=== PATIENT | female | born 1960 | race Caucasian/White ===

== ENCOUNTER 2025-08-10 18:06 | Emergency (ER) | payer MEDICARE, MEDICAID, SELFPAY ==
--- OUTSIDE RECORDS SUMMARY | 2010-12-05 04:35 | XMS_ITS | Continuity of Care Document ---
Author Organization [facility] Address [address] [place] [address] Phone Care Team Providers Care Occupational Health Nurse Manager Name Role Phone Oleksandr SUPERVISOR POLE YARD, Joyce Unavailable Unavailabl e Allergies, Adverse Reactions, Alerts Substance Reaction Status Criticality ferrous sulfate fainting Active No Informati on Medications Medication Instructions Dosage Effective Dates (start - stop) Status Comments estradiol 1 mg Tab take 1 tablet (1MG) by ORAL route every day 1 MG - [facility] SUPERVISOR POLE YARD albuterol sulfate HFA 90 mcg/Actuation Aerosol Inhaler inhale 2 puff by INHALATION route every 4 - 6 hours as needed - Active hydrochlorothiazide 25 mg Tab take 1 tablet (25MG) by ORAL route every day 25 MG - Active Procedures Procedure Date EST OFFICE VISIT LEVEL 4 EST OFFICE VISIT LEVEL 4 MEASURE BLOOD OXYGEN LEVEL EST OFFICE VISIT LEVEL 3 EST OFFICE VISIT LEVEL 4 OFFICE/OUTPATIENT VISIT, EST PREV VISIT, NEW, AGE 40-64 LIQUID BASED PAP REFLEX HPV FROM ASCUS, 20 & OVER Condoms EST OFFICE VISIT LEVEL 4 EST OFFICE VISIT LEVEL 4 EST OFFICE VISIT LEVEL 4 TB INTRADERMAL TEST Advance Directives Directive Yes / No Effective Date File Name Resuscitation Not Answered N/A N/A Life Support Not Answered N/A N/A Intubation Not Answered N/A N/A Antibiotics Not Answered N/A N/A IV Fluid Support Not Answered N/A N/A Tube Feed Not Answered N/A N/A Other Directive N/A N/A WARNING:The information contained in this section is historical and is provided for information only and does not constitute a legal document or any assurance that the information is still accurate. Please verify the information with the law of the legal document before using it for clinical purposes. Encounters Encounter Description Practice Location Reason(s) For Visit Diagnoses Date Provider Providers Copied on Encounter [facility], [address] [place] [address], [id number] , tel: [phone] [facility] work injury contusion left great toe/neg fx, er report (chief complaint) No Information Nov-2 1201 1 Oleksandr Cook. [address] [place] [address], [address]. tel:[phone] EST OFFICE VISIT LEVEL 4 [facility], [address] [place] [address], [id number] , [place] tel: [phone] [facility] cough (chief complaint)b ilateral leg pain/edema (chief complaint) EdemaAcute sinusitis, unspecifiedElevated blood pressure reading without diagnosis of hypertensionCough Fe-0 8-201 1 Oleksandr Cook. [address] [place] [address], [address]. tel:[phone] EST OFFICE VISIT LEVEL 4 [facility], [address] [place] [address], [id number] , [place] tel: [phone] [facility] follow up bruised ribs (chief complaint) Unspecified chest painObstructive chronic bronchitis, with (acute) exacerbationUnspeci fied chest painObstructive chronic bronchitis, with (acute) exacerbation Dec-0 3-201 0 Oleksandr Cook. [address] [place] [address], [address]. tel:[phone] EST OFFICE VISIT LEVEL 3 [facility], [address] [place] [address], [id number] , [place] tel:[phone] [facility] rib pain (chief complaint) Cough Nov-3 0-201 0 Oleksandr Cook. [address] [place] [address], [address]. tel:[phone] EST OFFICE VISIT LEVEL 4 [facility], [address], [place], [id number] , [place] tel: [phone] [facility] shortness of breath (chief complaint)c ough (chief complaint)w heezing (chief complaint) Acute bronchitisObstructi ve chronic bronchitis, with (acute) exacerbation Oct-2 6-201 0 Oleksandr Cook. [address] [place], [address]. tel:[phone] OFFICE/OUTPA TIENT VISIT, [facility], [address], [place], [id number] , [place] tel: [phone] [facility] chest pain (chief complaint) Unspecified chest painObstructive chronic bronchitis, with (acute) exacerbationUnspeci fied chest painOther malaise and fatigueOther malaise and fatigueObesity, unspecifiedNondepen dent tobacco use disorderCoughObesit y, unspecifiedCough Sep-0 7-201 0 Oleksandr Cook. [address] [place], [address]. tel:[phone] PREV VISIT, NEW, AGE 40-64 [facility], [address] [place] [address], [id number] , [place] tel: [phone] [facility] No Information Aug-0 9201 0 Yanelis Scott. [address] [place] [address], [id number]. tel:[phone] EST OFFICE VISIT LEVEL 4 [facility], [address] [place] [address], [id number] , [place] tel: [phone] [facility] follow up on lab / diagnostic test (chief complaint) Pain in joint involving lower leg Hans-0 8-201 0 Finn Bledsoe. [address] [place], [address], [place]. tel:[phone] EST OFFICE VISIT LEVEL 4 [facility], [address] [place] [address], [id number] , [place] tel:[phone] [facility] cellulitis (chief complaint) Pain in joint involving lower leg 0 Stierwalt DIRECTOR OF LABOR AND DELIVERY-C Ladi. [address] [place], [address], [place]. tel:[phone] EST OFFICE VISIT LEVEL 4 [facility], [address], [place], [id number] , tel:[phone] [facility] edema (chief complaint)p ain (chief complaint) Cellulitis and abscess of leg, except footOther malaise and fatigue 0 Stierwalt DIRECTOR OF LABOR AND DELIVERY-C Ladi. [address] [place], [address], [place]. tel:[phone] [facility], [address], [place], [id number] , tel:[phone] [facility] No Information 200 8 Visci DO Zeferino. [address] [place] [address], [id number], [place]. tel:[phone] Family History Family Member Type Diagnosis Age At Onset Mother Problem (finding) hypertension Father Problem (finding) prostate cancer Mother Problem (finding) Alive and well 70 Father Problem (finding) Alive and well Maternal grandfather Problem (finding) alcoholism Father Problem (finding) diabetes melli tus in first degree relative Father Problem (finding) Obesity Payers Payer name Insurance type Covered libertarian ID Saida rizvipaola(s) [facility] CI [id number] Social History Type Description Quantity Date Captured Comments Alcohol Use Details Unknown Caffeine Use Details Unknown Tobacco Use Status Smoking Status No Information Sex Female Yes - Patient is cur rently Chief Complaint And Reason For Visit From encounter dated '12/05/2010 09:35'. work injury contusion left great toe/neg fx, er report (chief complaint) Reason For Referral Reason For Referral No Information Plan Of Treatment Date Type Action Status Goal Lipid Panel. Due on 011 due Goal Urinalysis. Due on 11 due Goal Urine Microalbumin. Due on S due History Of Present Illness Encounter Date Complaint History Of Prese nt Illness No Information Functional Status Date Functional Assessmen t No Information Instructions Date Instruction Additional Infor chicho Review medications Review medication side effects Walking program recommended Call if symptoms persist Go to ER if symptoms persist or worsen Prescribe medications Review medications Review medication side effects Go to ER if symptoms persist or worsen Call if symptoms persist Walking program recommended Walking program recommended Call if symptoms persist Go to ER if symptoms persist or worsen Order labs/studies Review medications Assessments Type Assessment Date No Information Patient Care Teams Name Effective Dates (start - stop) Status Members No Information
[2025-08-10 18:12] VITALS: BP 143/91; PULSE 77; TEMP 36.7; O2SAT 98; BMI 28.7
--- NOTE | 2025-08-10 18:24 | ED_ITS ---
HPI - Female Genitourinary General Chief complaint: Urogenital-Female Stated complaint: UTI Time Seen by Provider: 08/10/25 18:23 Source: patient Mode of arrival: walk-in Limitations: no limitations History of Present Illness HPI Narrative: 64 year old female presents to the ED for urinary frequency/urgency, low abd discomfort. Onset was this morning. Denies fever, chills, flank pain, dysuria, hematuria. She takes Lasix 80 mg daily. Related Data Previous Rx's ?Medication ?Instructions ?Recorded cephalexin 500 mg capsule 500 mg PO BID 5 days #10 cap s 08/10/25 phenazopyridine 100 mg tablet 100 mg PO Q8H PRN pain # 5 tabs 08/10/25 (Pyridium) Allergies Allergy/AdvReac Type Severity Reaction Status Date / Time tramadol Allergy Intermediate mouth Verified 08/10/25 18:15 tingling amoxicillin (From Augmentin) AdvReac Intermediate blood in Verified 08/10/25 18:15 stool clavulanic acid (From AdvReac Intermediate blood in Verified 08/10/25 18:15 Augmentin) stool iron AdvReac Intermediate syncope Verified 08/10/25 18:15 Review of Systems ROS Constitutional Denies: fever or chills Cardiovascular Denies: chest pain Respiratory Denies: shortness of breath Gastrointestinal Reports: abdominal pain; Denies: nausea, vomiting or diarrhea Genitourinary Reports: urinary frequency and urinary urgency; Denies: painful urination or blood in urine Musculoskeletal Denies: back pain or neck pain Integumentary/Breast Denies: rash Neurological Denies: headache, weakness in extremities or dizziness PFSH PFSH Social History Little interest or pleasure in doing things: not at all Feeling down, depressed, or hopeless: not at all Exam Constitutional Vital Signs, click to edit/add: Last Vital Signs Temp 98.1 F 08/10/25 18:12 Pulse 77 08/10/25 18:12 Resp 18 08/10/25 18:12 BP 143/91 H 08/10/25 18:12 Pulse Ox 99 08/10/25 19:23 O2 Del Method Room Air 08/10/25 19:23 Common normals: no apparent distress and oriented x3 General appearance: cooperative Eye Common normals: conjunctivae normal and no scleral icterus Neck & C-Spine Common normals: supple Chest Chest: symmetrical chest wall rise Respiratory Common normals: normal respiratory effort Effort & inspection: able to speak in complete sentences and symmetric chest movement Cardio Common normals: regular rate GI Common normals: Normal to inspection, nondistended, normoactive bowel sounds present and soft to palpation Palpation: tender Details: suprapubic Bladder/kidney exam: no CVA tenderness Neuro Common normals: oriented x3, moves all extremities and no focal motor deficits Sensorium/orientation: awake and alert Speech: speech normal Gait (neuro): normal gait Course Vital Signs Vital signs: Vital Signs Temperature 98.1 F 08/10/25 18:12 Pulse Rate 77 08/10/25 18:12 Respiratory Rate 18 08/10/25 18:12 Blood Pressure 143/91 H 08/10/25 18:12 Pulse Oximetry 98 08/10/25 18:12 Oxygen Delivery Method Room Air 08/10/25 18:12 Temperature 98.1 F 08/10/25 18:12 Pulse Rate 77 08/10/25 18:12 Respiratory Rate 18 08/10/25 18:12 Blood Pressure 143/91 H 08/10/25 18:12 Pulse Oximetry 99 08/10/25 19:23 Oxygen Delivery Method Room Air 08/10/25 19:23 MDM - Female Genitourinary MDM Narrative Medical decision making narrative: Urinalysis was positive for 10-[address] scan showed concern for cystitis. Urine culture was ordered and pending. Findings were discussed with the patient and her family member. Prescriptions were provided for Keflex and Pyridium. She was given Rocephin and Pyridium here in the ED. Follow up with pcp for a recheck, further evaluation and treatment. Return to the ED for worsening symptoms. Differential Diagnosis Differential diagnosis: Likely urinary tract infection, cystitis and other (kidney stone) Medical Records Attestation: I reviewed the patient's medical records. Lab Data Attestation: I reviewed the patient's lab results. Labs: Lab Results 08/10/25 08/10/25 Range/Units 18:31 18:55 WBC 5.6 (4.0-11.0) 10^3/uL RBC 4.53 (4.20-5.40) 10^6/uL Hgb 14.2 (12.0-16.0) g/dL Hct 40.9 (36.0-48.0) % MCV 90.3 (81.0-99.0) fL MCH 31.3 (26.7-34.0) pg MCHC 34.7 (29.9-35.2) g/dL RDW 12.8 (11.0-15.0) % Plt Count 102 L (150-450) 10^3/uL MPV 12.2 (9.5-13.5) fL Neut % (Auto) 76.8 H (43.0-75.0) % Lymph % (Auto) 9.9 L (20.5-60.0) % [place] % (Auto) 11.9 (1.7-12.0) % Eos % (Auto) 0.7 L (0.9-7.0) % Baso % (Auto) 0.2 (0.2-2.0) % Neut # (Auto) 4.3 (1.4-6.5) 10^3/uL Lymph # (Auto) 0.6 L (1.2-3.8) 10^3/uL [place] # (Auto) 0.7 (0.3-0.8) 10^3/uL Eos # (Auto) 0.0 (0.0-0.7) 10^3/uL Baso # (Auto) 0.0 (0.0-0.1) 10^3/uL Abs Immat Gran (auto) 0.03 (0.00-0.03) 10^3/uL Imm/Tot Granulo (auto) 0.5 (0.0-0.5) % Sodium 134 L (136-145) mmol/L Potassium 3.9 (3.5-5.1) mmol/L Chloride 97 L (98-107) mmol/L Carbon Dioxide 33.1 H (21.0-32.0) mmol/L Anion Gap 7.8 BUN 22.0 H (7.0-18.0) mg/dL Creatinine 1.31 H (0.55-1.02) mg/dL Est GFR ( Amer) 50 L (>=60 mL/min/1.73m^2) Est GFR (Non-Af Amer) 41 L (>=60 mL/min/1.73m^2) BUN/Creatinine Ratio 16.8 Glucose 167 H (74-106) mg/dL Calcium 9.7 (8.5-10.1) mg/dL Urine Color Lt. yellow (YELLOW) Urine Clarity Clear (CLEAR) Urine pH 6.0 (5.0-9.0) Ur Specific [place] 1.010 (1.005-1.025) Urine Protein Negative (NEG/TRACE) mg/dL Urine Glucose (UA) Negative (NEGATIVE) mg/dL Urine Ketones Negative (NEGATIVE) mg/dL Urine Occult Blood Large A (NEGATIVE) Urine Nitrite Negative (NEGATIVE) Urine Bilirubin Negative (NEGATIVE) Urine Urobilinogen 1.0 (0.2-1.0) EU/dL Ur Leukocyte Esterase Negative (NEGATIVE) Urine RBC 10-20 A (0-2) #/HPF Urine WBC None seen (NONE SEEN) #/HPF Ur Squamous Epith Cells Rare (NONE/RARE) #/LPF Urine Crystals None seen (None Seen) #/HPF Urine Bacteria Trace A (NONE SEEN) #/HPF Urine Casts None seen (NONE SEEN) #/LPF Urine Mucus None seen (NONE SEEN) Ur Culture Indicated? No Imaging Data CT scan - abdomen: Attestation: I have reviewed the pertinent imaging results. Radiologist's impression: ITS Impressions Abdomen/Pelvis CT 08/10/25 18:48 IMPRESSION: Perivascular haziness worrisome for cystitis. Correlate with urinalysis findings. Negative for nephrolithiasis or hydronephrosis. Impression dictated by: Dm Curtis M.D. 08/10/2025 8:08 PM Dictation Location: [place] [address] Electronically authenticated by: [id number] Y Date: 08/10/2025 20:08 Discharge Plan Discharge Chief Complaint: Urogenital-Female Clinical Impression: Urinary tract infection Patient Disposition: Home, Self-Care Time of Disposition Decision: 20:33 Condition: Good Mode of Transportation: Private Vehicle Prescriptions / Home Meds: New cephalexin 500 mg capsule 500 mg PO BID 5 Days Qty: 10 0RF phenazopyridine [Pyridium] 100 mg tablet 100 mg PO Q8H PRN (Reason: pain) Qty: 5 0RF Print Language: St Helenian Instructions: Urinary Tract Infection in Women (ED) Additional Instructions: Return to the ED for worsening symptoms. Referrals: HECTOR GUTIERREZ [Primary Care Provider, Family Practice] - 1 week
[2025-08-10 18:37] LABS: Glucose Urine UA NEGATIVE (NEGATIVE)
[2025-08-10 18:45] LABS: Cast Seen? NONE SEEN #/LPF (NONE SEEN); Crystals Seen? None Seen #/HPF (None Seen); Urine Culture Indicated NO
--- NOTE | 2025-08-10 18:48 | CT_ITS ---
The [address] [address] Patient Name: RUTHANN CALIXTO MRN: [facility]:[id number] date: 1960 Sex: F Assigned Patient Location: ER Current Patient Location: ED.MAIN Accession/Order Number: [id number] Exam Date: 08/10/2025 18:58 Report Date: 08/10/2025 20:08 At the request of: SRUTHI JARRETT Procedure: CT abdomen pelvis wo con CT ABDOMEN AND PELVIS WITHOUT INTRAVENOUS CONTRAST: CLINICAL HISTORY: hematuria COMPARISON: None TECHNIQUE: Spiral images were obtained through the abdomen and pelvis without intravenous contrast. This CT exam was performed using one or more following dose reduction techniques: Automated exposure control, adjustment of the mA and/or kV according to patient size, or use of iterative reconstruction technique. FINDINGS: Lung Bases: [Lingular scarring or atelectasis.] Organs:Lobular contour of the liver liver worrisome for hepatic cellular disease. Splenomegaly. Cholecystectomy.[Otherwise, adrenals, pancreas unremarkable. Right renal cyst 3.8 cm in size. Negative hydronephrosis. Negative for nephrolithiasis. GI: Retained stool throughout the colon. No bowel obstruction. Appendix unremarkable.[ Pelvis:[Bladder is mildly distended with surrounding fat stranding worrisome for cystitis. Hysterectomy. No adnexal mass.] Peritoneum/Retroperitoneum:Moderate plaque involving the nonaneurysmal aorta.[No free air or free fluid. Abd wall/Bones:Multilevel facet arthropathy. No suspicious osseous lesion.[ CT/CT abdomen pelvis wo con IMPRESSION: Perivascular haziness worrisome for cystitis. Correlate with urinalysis findings. Negative for nephrolithiasis or hydronephrosis. Impression dictated by: Dm Curtis M.D. 08/10/2025 8:08 PM Dictation Location: [place] [address] Electronically authenticated by: [id number] Y Date: 08/10/2025 20:08
--- OUTSIDE RECORDS SUMMARY | 2025-08-10 18:57 | XMS_ITS | Encounter Summary ---
Author Organization [facility] Address [address] [place] [address] Care Team Providers Care Arboreal Scientist Name Role Phone Huber Greene MD Primary Care Provider Arie Marquez DO Unavailable [phone] Melissa Agustin MD Unavailable Huber Greene MD Unavailable [phone] Reason for Visit * ReasonOnset DateCommentsMed Irsqzv0208/03/2025 Encounter Details DateTypeDepartmentCare Team (Latest Contact Info)Pmoeitplcju50/17/2025Refill [facility] [address] [place] [address] Huber Greene MD [address] [place] [address] Chronic RUQ pain Social History Tobacco UseTypesPacks/DayYears UsedDateSmoking Tobacco: Every DayCigarettes0.5 40.9Started: 09/17/1984Passive Smoke Exposure: CurrentSmokeless Tobacco: Never Alcohol UseStandard Drinks/WeekCommentsNever0 (1 standard drink = 0.6 oz pure alcohol)caffeine 2-3 cups/vcbE1035 Health LiteracyAnswerDate RecordedHow often do you need to have someone help you when you read instructions, pamphlets, or other written material from your doctor or pharmacy?Never06/10/2025Humiliation, Afraid, Rape, and Kick questionnaireAnswerDate RecordedWithin the last year, have you been afraid of your partner or ex-partner?No06/10/2025Within the last year, have you been humiliated or emotionally abused in other ways by your partner or ex-partner?No06/10/2025Within the last year, have you been kicked, hit, slapped, or otherwise physically hurt by your partner or ex-partner?No 06/10/2025Within the last year, have you been raped or forced to have any kind of sexual activity by your partner or ex-partner?No06/10/2025Social Connection and Isolation PanelAnswerDate RecordedIn a typical week, how many times do you talk on the phone with family, friends, or neighbors?More than three times a week06/10/2025How often do you get together with friends or relatives?Twice a week06/10/2025How often do you attend zoroastrian or gnosticist services?More than 4 times per year06/10/2025Do you belong to any clubs or organizations such as zoroastrian groups, unions, fraternal or athletic groups, or school groups?Yes 06/10/2025How often do you attend meetings of the clubs or organizations you belong to?1 to 4 times per year06/10/2025re you , , , , never , or living with a partner?Living with gqkfpfp0006/10/2025 AUDIT-CAnswerDate RecordedQ1: How often do you have a drink containing alcohol? Never06/10/2025Q2: How many drinks containing alcohol do you have on a typical day when you are drinking?Patient does not drink06/10/2025Q3: How often do you have six or more drinks on one occasion?Never06/10/2025Overall Financial Resource Strain (CARDIA)AnswerDate RecordedHow hard is it for you to pay for the very basics like food, housing, medical care, and heating?Somewhat hard 06/10/2025PHQ-2AnswerDate RecordedPatient Health Questionnaire-2 Score0 11/24/2024[place] [facility] - Occupational Stress QuestionnaireAnswerDate RecordedDo you feel stress - tense, restless, nervous, or anxious, or unable to sleep at night because yourmind is troubled all the time - these days?Not at all06/10/2025Exercise Vital SignAnswerDate RecordedOn average, how many days per week do you engage in moderate to strenuous exercise (like a brisk walk)?2 days06/10/2025On average, how many minutes do you engage in exercise at this level?20 min06/10/2025Hunger Vital SignAnswerDate Recorded Within the past 12 months, you worried that your food would run out before you got the money to buymore.Never true06/10/2025Within the past 12 months, the food you bought just didn't last and you didn't have money to get more.Never true 06/10/2025PRAPARE - TransportationAnswerDate RecordedIn the past 12 months, has lack of transportation kept you from medical appointments or from getting medications?No06/10/2025In the past 12 months, has lack of transportation kept you from meetings, work, or from getting things needed for daily living?No 06/10/2025Housing Stability Vital SignAnswerDate RecordedIn the last 12 months, was there a time when you were not able to pay the mortgage or rent on time?No 03/09/2023Number of Places Lived in the Last YearNot on file03/09/2023In the last 12 months, was there a time when you did not have a steady place to sleep or slept in [place] (including now)?No03/09/2023Housing Stability Vital Sign AnswerDate RecordedIn the last 12 months, was there a time when you were not able to pay the mortgage or rent on time?No06/10/2025Number of Times Moved in the Last YearNot on file06/10/2025t any time in the past 12 months, were you homeless or living in a nursing home (including now)?No06/10/2025CommentsNo Sex and Gender InformationValueDate RecordedSex Assigned at BirthFemale 09/23/2024 6:00 PM ESTLegal SmjYvuflg52/15/2023 8:25 PM EDTGender IdentityNot on fileSexual OrientationNot on filedocumented as of this encounter Plan of Treatment DateTypeDepartmentCare Team (Latest Contact Info)Mxnqofgoocg72/29/2026 1:00 PM EDTOffice Visit [facility] [place] [facility] [address] [place] [address] Melissa Agustin MD [address] [place] [address] 06/08/2026 1:45 PM EDTOffice Visit [facility] [address] [place] [id number] Arie Marquez, DO [address] [place] [address] documented as of this encounter Goals GoalPatient Goal TypeAssociated ProblemsRecent ProgressPatient-Stated?Author Help patient manage antidepressant medication Care PlanPatient on antidepressant monitoring Huber Humphrey MD Baseline PHQ-9 Care PlanBaseline PHQ-9Huber Ray, MDdocumented as of this encounter Visit Diagnoses Diagnosis Chronic RUQ pain Abdominal pain, right upper quadrant documented in this encounter Additional Health Concerns Active ProblemsNoted DateDiagnosed DatePatient on antidepressant monitoring plan 4Baseline PHQ-904documented as of this encounter Care Teams Team MemberRelationshipSpecialtyStart DateEnd Date Huber Greene MD [address] [place] [address] PCP - [facility]02/23/23 Huber Greene MD [address] [place] [address] PCP - [facility]/ Arie Marquez DO [address] [facility] [place] [address] Otolaryngology02/12/24 Melissa Agustin MD [address] [place] [address] Endocrinology03/27/24documented as of this encounter
--- OUTSIDE RECORDS SUMMARY | 2025-08-10 18:57 | XMS_ITS | Clinical Summary ---
Author Organization [facility] Address [address] [place] [id number] Care Team Providers Care Supplemental Nurse Name Role Phone Unavailable Primary Care Provider Unavailabl e Allergies Active AllergyReactionsCriticalityNoted DateCommentsIronOther: See Comments 04/06/2015 makes me faint TramadolOther: See Mbgmajxp67/21/2017 Tingling sensation in the mouth Medications MedicationSigDispense QuantityRefillsLast FilledStart DateEnd DateStatus spironolactone (ALDACTONE) 50 mg tablet Take 50 mg by mouth once daily.Active Ranitidine HCl 150 mg capsule Take 150 mg by mouth twice daily.Active AMPHETAMINE SALT COMBO 20 mg tablet twice daily.03/20/2015ctive ALBUTEROL INHALATION Inhale as instructed as needed.Active albuterol HFA (PROAIR HFA) 90 mcg/actuation inhaler Inhale 2 Puffs as instructed every 6 hours as needed.Active FUROSEMIDE (LASIX ORAL) Take by mouth. Takes 60 mg PRNActive potassium chloride (K-TAB) 10 mEq tablet Take 10 mEq by mouth once daily.Active Active Problems ProblemNoted DateDiagnosed DateChronic hepatitis C without mention of hepatic coma05/28/2015 Family History Medical HistoryRelationCommentsDiabetesFatherHypertensionFatherProstate Cancer FatherHypertensionMotherRelationStatusCommentsFatherMother Social History Tobacco UseTypesPacks/DayYears UsedDateSmoking Tobacco: Every DayCigarettes0.530 Smokeless Tobacco: NeverAlcohol UseStandard Drinks/WeekCommentsYes0 (1 standard drink = 0.6 oz pure alcohol) a couple a month CommentsNoSex and Gender InformationValueDate RecordedSex Assigned at BirthNot on fileLegal SexFemale 08/18/2012 9:14 AM ESTGender IdentityNot on fileSexual OrientationNot on file Last Filed Vital Signs Vital SignReadingTime TakenCommentsBlood Dfoqmbrv505/71011/07/2016 3:04 PM EST Nahxx182111/07/2016 3:04 PM NUTDpvpxlppxcy45.4 ??C (97.6 ??F)11/07/2016 3:04 PM ESTRespiratory Rate--Oxygen Jpeahpjctx03%11/07/2016 3:04 PM ESTInhaled Oxygen Concentration--Llpwei81.5 kg (212 lb 12.8 oz)11/07/2016 3:04 PM ESTshoes on Vuonxw289.8 cm (5' 10 )11/07/2016 3:04 PM ESTBody Mass Index30.53011/07/2016 3:04 PM EST Plan of Treatment Health MaintenanceDue DateLast DoneCommentsAnxiety Bpohfemjr28/16/1980Depression Oadseckfo34/16/1980HIV Nriwvyruz25/16/1980DTaP,Tdap,Td Vaccine (1 - Tdap) 1980CT Konmibfkqggl17/16/2007Cologuard (FIT-DNA)2006Colonoscopy 2006Colorectal Cancer Vaogziype76/16/2007Diabetes Kzborzehj12/16/2007Fecal Occult Blood2006Lipid Miejceyfx66/16/5606Zvsxqhvuutamq18/16/2007Mammogram Sbqjqxlts17/01/Pneumococcal Vaccine: 50+ (1 of 1 - PCV)12/01/2011 Shingrix Vaccine (1 of 2)12/01/2011Cervical Cancer Wtsoelnxk09/01/ Covid-19 Vaccine (1 - 2024- season)2025Influenza Vaccine (#1)2025 RSV Vaccine (1 - 1-dose 75+ series)2036Hepatitis C ScreeningCompleted 11/07/2016, 02/07/2016, 09/20/2015, Additional history exists Procedures Procedure NamePriorityDate/TimeAssociated DiagnosisCommentsHEPATITIS C VIRUS (HCV) GENOTYPING BY RT-PCR, PLASMA/HCLSDQstfqhh68/ 10:35 AM EDT Chronic hepatitis C without mention of hepatic coma (HCC) from Last 3 Months or Most Recently Relevant to Health Maintenance Results * (ABNORMAL) HEPATITIS C GENOTYPE (04/06/2015 10:35 AM EDT)ComponentValueRef RangeTest MethodAnalysis TimePerformed AtPathologist SignatureHepatitis C Qboduqpd0j(A)04/12/2015 3:55 PM EDTCST. JOHN OF GOD HOSPITAL MAIN LABORATORYComment: This test was developed and its performance characteristics determined by [facility] ([facility]). It has not been cleared or approved by the FDA. RT[facility] is regulated under CLIA as qualified to perform high-complexity testing. This test is used for clinical purposes. It should not be regarded as investigational or for research. Specimen (Source)Anatomical Location / LateralityCollection Method / Volume Collection TimeReceived TimeBlood specimen (specimen)BLOOD SPECIMEN / Unknown 04/06/2015 10:35 AM EDT04/06/2015 10:37 AM EDT Narrative Authorizing ProviderResult TypeResult StatusMickaushik Moreno MD, PhDLABORATORY Final ResultPerforming OrganizationAddressCity/State/ZIP CodePhone Number [facility] [address] [place] [address] from Last 3 Months or Most Recently Relevant to Health Maintenance Insurance
--- OUTSIDE RECORDS SUMMARY | 2025-08-10 18:57 | XMS_ITS | Clinical Summary ---
Author Organization [facility] Address [address] [place] [address] Care Team Providers Care Heat Treat Inspector Name Role Phone Unavailable Primary Care Provider Unavailabl e Allergies Active AllergyReactionsCriticalityNoted DateCommentsAmoxicillin-Pot Clavulanate Ieqmqbkr83/04/2025 Bloody diarrhea RsikAwksw52/21/2015 Passed out makes me faint LkeghsrwGatsz67/21/2017 Mouth tingling Tingling sensation in the mouth Medications MedicationSigDispense QuantityRefillsLast FilledStart DateEnd DateStatus citalopram (CeleXA) 20 mg tablet 5Active oxyCODONE (Roxicodone) 10 mg immediate release tablet 5Active levothyroxine (Synthroid, Levoxyl) 112 mcg tablet 5Active nadolol (Corgard) 20 mg tablet Take 20 mg by mouth in the morning.Active potassium chloride CR (Klor-Con M10) 10 mEq ER tablet Take 10 mEq by mouth in the morning. Do not crush or chew.Active furosemide (Lasix) 40 mg tablet Take 40 mg by mouth with breakfast and with evening meal.Active ondansetron (Zofran) 4 mg tablet Take 4 mg by mouth every 8 (eight) hours if needed for nausea or vomiting.Active spironolactone (Aldactone) 100 mg tablet Take 100 mg by mouth in the morning.Active pantoprazole (ProtoNix) 40 mg EC tablet Take 40 mg by mouth before breakfast. Do not crush, chew, or split.Active folic acid (Folvite) 1 mg tablet Take 1 mg by mouth in the morning.Active fluticasone (Flovent) 220 mcg/actuation inhaler Inhale 1 puff in the morning and at bedtime. Rinse mouth with water after use to reduce aftertaste and incidence of candidiasis. Do not swallow.Active amphetamine-dextroamphetamine XR (Adderall XR) 30 mg 24 hr capsule Take 30 mg by mouth 2 times daily. Do not crush or chew.Active albuterol 90 mcg/actuation inhaler Inhale 2 puffs every 6 (six) hours if needed for wheezing.Active Active Problems ProblemNoted DateDiagnosed DateCigarette frisug7212/21/2023bnormal EKG012/21/2023 Chronic hepatitis C without mention of hepatic coma05/28/2015 Encounters DateTypeDepartmentCare SiokXtynqbffqns12/04/2025 3:30 PM ESTOffice Visit [facility] [address] [place] [address] Sandip Collado MD Cirrhosis of liver without ascites, unspecified hepatic cirrhosis type (CMS/HCC) (Primary Dx); Dysphagia, unspecified type; Colon cancer screeningfrom Last 3 Months Immunizations ImmunizationAdministration DatesNext DueHep B, adult12/25/2017Pfizer SARS-CoV-2 Hinnsuqvgxx23/16/2021,1Pneumococcal Conjugate, Uuyonaevwep35/23/2014 Social History Tobacco UseTypesPacks/DayYears UsedDateSmoking Tobacco: Every DayCigarettes Smokeless Tobacco: Never Tobacco Cessation:Ready to Q uit: Not Asked; Counseling Given: Not Answered Alcohol UseStandard Drinks/WeekCommentsNot Currently0 (1 standard drink = 0.6 oz pure alcohol)Humiliation, Afraid, Rape, and Kick questionnaireAnswerDate RecordedWithin the last year, have you been afraid of your partner or ex-partner?No07/21/2025Within the last year, have you been humiliated or emotionally abused in other ways by your partner or ex-partner?No07/21/2025 Within the last year, have you been kicked, hit, slapped, or otherwise physically hurt by your partner or ex-partner?No07/21/2025Within the last year, have you been raped or forced to have any kind of sexual activity by your part ner or ex-partner?07/21/2025PHQ-2AnswerDate RecordedPatient Health Questionnaire-2 Glxng71609/20/2024CommentsUnknownSex and Gender InformationValueDate RecordedSex Assigned at DejkjZjhfvf01/04/2025 3:16 PM EST Legal BdoZcyvhz71/30/2022 12:02 AM EDTGender BqmflkukBwaoaq20/04/2025 3:16 PM ESTSexual OrientationHeterosexual or Vjywfnph40/04/2025 3:16 PM EST Last Filed Vital Signs Vital SignReadingTime TakenCommentsBlood Cidkpjow103/7507/21/2025 3:20 PM EST Wihct953207/21/2025 3:20 PM ESTTemperature--Respiratory Rate--Oxygen Saturation-- Inhaled Oxygen Concentration--Yieysj215 kg (226 lb 9.6 oz)07/21/2025 3:20 PM EST Zihyir981.8 cm (5' 10 )07/21/2025 3:20 PM ESTBody Mass Index32.51109/20/2024 3:20 PM EST Plan of Treatment DateTypeDepartmentCare Team (Latest Contact Info)Hpcdphqwedz63/12/2026 3:00 PM EDTOffice Visit [facility] [address] [place] [address] Sandip Collado MD [address] [facility] [address] [facility] [place] [address] Health MaintenanceDue DateLast DoneCommentsCT Wavkeptkosrl28/16/1962Diabetes: Hemoglobin A1C1961FIT-DNA1961FIT1961FOBT1961Medicare Annual Wellness (AWV)1961 2615Gjptuskcmbsyk80/16/1962Diabetes: Retinopathy Mwgckshcy71/16/1972Diabetes: Urine Protein Hhuiwzhzm31/16/1981Pneumococcal Vaccine: Pediatrics (0 to 5 Years) and At-Risk Patients (6 to 64 Years) (1 of 2 - PCV), 02/06/2014Pap Smear1982Adult Nihmuhg5412/01/1983 Cervical Cancer Dhioliuqu25/16/1992HPV/Wrvkdb8312/01/1991Zoster Vaccines (1 of 2) 12/01/20112499Kctndhdqo40/27/3COVID-19 Vaccine (3 - season) /, 12/10/2020Influenza Vaccine (#1)2025Depression Ybkghfbia53/5747Pjoocyczjat70/03/202905/11/2018Colorectal Cancer Muwawbblg27/03/2029HIB VaccinesAged OutNo longer eligible based on patient's age to complete this topicHPV VaccinesAged OutNo longer eligible based on patient's age to complete this topicIPV VaccinesAged OutNo longer eligible based on patient's age to complete this topicMeningococcal B VaccineAged OutNo longer eligible based on patient's age to complete this topicMeningococcal VaccineAged OutNo longer eligible based on patient's age to complete this topicRotavirus VaccinesAged OutNo longer eligible based on patient's age to complete this topic Insurance
--- OUTSIDE RECORDS SUMMARY | 2025-08-10 18:57 | XMS_ITS | Clinical Summary ---
Author Organization [facility] Address [address] [place] [address] Phone Care Team Providers Care Bioinformatics Programmer Name Role Phone Huber Greene MD Primary Care Prov ider Allergies Active AllergyReactionsCriticalityNoted FnjtMyxhbcjtOfwyGwxtq16/05/2024 Passed out MvcjvxcmWckrk56/05/2024 Mouth tingling Medications MedicationSigDispense QuantityRefillsLast FilledStart DateEnd DateStatus furosemide (Lasix) 40 mg tablet Take 1 tablet (40 mg) by mouth 2 times a day.Active potassium chloride CR 10 mEq ER tablet Take 1 tablet (10 mEq) by mouth once daily. Do not crush, chew, or split.Active nadolol (Corgard) 20 mg tablet Take 1 tablet (20 mg) by mouth once daily.Active cholecalciferol (Vitamin D3) 50 mcg (2,000 unit) capsule Take 1 capsule (50 mcg) by mouth once daily.Active spironolactone (Aldactone) 100 mg tablet Take 1 tablet (100 mg) by mouth once daily.Active folic acid (Folvite) 1 mg tablet Take 1 tablet (1 mg) by mouth once daily.Active pantoprazole (ProtoNix) 40 mg EC tablet Take 1 tablet (40 mg) by mouth once daily in the morning. Take before meals. Do not crush, chew, orsplit.Active albuterol 90 mcg/actuation aerosol powdr breath activated inhaler Inhale 2 puffs every 4 hours if needed for wheezing.Active fluticasone (Flovent HFA) 44 mcg/actuation inhaler Inhale 1 puff 2 times a day. Rinse mouth with water after use to reduce aftertaste and incidence ofcandidiasis. Do not swallow.Active amphetamine-dextroamphetamine (Adderall) 30 mg tablet Take 1 tablet (30 mg) by mouth 2 times daily after breakfast and lunch.Active oxyCODONE ER (OxyCONTIN) 10 mg 12 hr tablet Take 1 tablet (10 mg) by mouth 4 times a day. Do not crush, chew, or split. Active Active Problems ProblemNoted DateDiagnosed DateAbnormal EKG012/21/2023igarette qefnvk3012/21/2023 Family History Medical HistoryRelationNameCommentsHypertensionBrotherLiver cancerBrotherStomach cancerBrotherDiabetesFatherHypertensionFatherProstate cancerFatherDementiaMother HypertensionMotherHypertensionSisterRelationNameStatusCommentsBrotherDeceased FatherDeceasedMotherAliveSister Social History Tobacco UseTypesPacks/DayYears UsedDateSmoking Tobacco: Every DayCigarettes Smokeless Tobacco: Never Tobacco Cessation:Counseling Given: Yes Alcohol UseStandard Drinks/WeekCommentsNever0 (1 standard drink = 0.6 oz pure alcohol)CommentsUnknownSex and Gender InformationValueDate RecordedSex Assigned at BirthNot on fileLegal IqzJwngbn31/25/2022 2:54 PM ESTGender Identity Not on fileSexual OrientationNot on file Last Filed Vital Signs Vital SignReadingTime TakenCommentsBlood Rwkbytmp951/7404 1:05 PM EDT Onzqk608612/21/2023 1:04 PM EDTTemperature--Respiratory Rate--Oxygen Saturation-- Inhaled Oxygen Concentration--Jrivru839 kg (229 lb)12/21/2023 1:04 PM EDTHeight 177.8 cm (5' 10 )12/21/2023 1:04 PM EDTBody Mass Index32.8612/21/2023 1:04 PM EDT Plan of Treatment Health MaintenanceDue DateLast DoneCommentsCT Wlaayqgwmbxz38/16/1962Colonoscopy 2Colorectal Cancer Dxzskkmvk26/16/1962FIT-DNA (Cologuard)1961FIT 1961HIV Ollzlweds17/16/1962Lipid Panel1961Medicare Annual Wellness Visit (AWV)03/16/6446Ljzwemvldwskf06/16/1962MMR Vaccines (1 of 1 - Standard series)1962Diabetes Hmfvquqtq32/16/1980Hepatitis A Vaccines (1 of 2 - Risk 2-dose series)1980Cervical Cancer Ohbduekfk23/16/1983HPV/Rptscj6311/30/1982 Pap Smear1982DTaP/Tdap/Td Vaccines (1 - Tdap)12/01/1983RSV High Risk: (Elderly (60+) or Population) (1 - Risk 50-74 years 1-dose series) 12/01/2011Zoster Vaccines (1 of 2)12/01/2011Pneumococcal Vaccine (2 of 2 - PCV) , 02/06/2014Hepatitis B Vaccines (2 of 3 - Risk 3-dose series)/06/20186441Ffrpubyoe19/27/202402/Influenza Vaccine (#1) 5COVID-19 Vaccine ( - season)2025HIB VaccinesAged OutNo longer eligible based on patient's age to complete this topicHPV VaccinesAged OutNo longer eligible based on patient's age to complete this topicIPV Vaccines Aged OutNo longer eligible based on patient's age to complete this topic Meningococcal VaccineAged OutNo longer eligible based on patient's age to complete this topicRotavirus VaccinesAged OutNo longer eligible based on patient's age to complete this topic Insurance Care Teams Team MemberRelationshipSpecialtyStart DateEnd Huber West MD [address] [place] [address] [facility]
--- OUTSIDE RECORDS SUMMARY | 2025-08-10 18:57 | XMS_ITS | Clinical Summary ---
Author Organization [facility] Address [address] [place] [address] Care Team Providers Care Newspaper Copy Editor Name Role Phone Huber Greene MD Primary Care Provider Arie Marquez DO Unavailable [phone] Melissa Agustin MD Unavailable Huber Greene MD Unavailable [phone] Allergies Active AllergyReactionsCriticalityNoted DateCommentsAmoxicillin-Pot Clavulanate Diarrhea,GI domphhjqfij36/17/2291Evqg22/23/2023 Other Reaction(s): faint Bylfus3404/23/2024 Other Reaction(s): Liver damage Ifzcvxgj37/23/2023 Other Reaction(s): mouth tingling Medications MedicationSigDispense QuantityRefillsLast FilledStart DateEnd DateStatus folic acid (Folvite) 1 MG tablet Active albuterol (2.5 MG/3ML) 0.083% nebulizer solution 05/04/2022ctive cholecalciferol (Vitamin D-3) 50 MCG (1999) tablet Active albuterol HFA 90 mcg/act inhaler Indications:Panlobular emphysema (HCC)Inhale 2 puffs every 4 (four) hours if needed for wheezing or shortness of breath 18 g ctive citalopram (CeleXA) 20 MG tablet Indications:AnxietyTake 1 tablet (20 mg) by mouth Daily 90 tablet 4Active Additional Information Patient not taking.Reported on 07/15/2025 fluticasone-salmeterol (AirDuo RespiClick) 232-14 MCG/ACT inhaler Indications:Moderate persistent asthmatic bronchitis with acute exacerbation (HCC)Inhale 1 puff in the morning and 1 puff before bedtime. Rinse mouth with water after use to reduce aftertaste and incidence of candidiasis. Do not swallow.. 3 each 5Active Breztri Aerosphere 160-9-4.8 MCG/ACT aerosol Inhale 1 puff Daily5Active levothyroxine (Synthroid, Levoxyl) 112 MCG tablet Indications:Postoperative hypothyroidismTake 1 tablet (112 mcg) by mouth Daily 90 tablet 5Active ondansetron (Zofran) 4 MG tablet Indications:NauseaTAKE 1 TABLET (4 MG) BY MOUTH EVERY 8 (EIGHT) HOURS IF NEEDED FOR NAUSEA OR VOMITING 60 tablet 5Active mupirocin (Bactroban) 2 % ointment Indications:BCC (basal cell carcinoma), chestApply topically to excision line on chest daily with wound care x 14 days supply 22 g 04/29/2025tive doxycycline (Monodox) 100 MG capsule Indications:BCC (basal cell carcinoma), chestTake 1 capsule, by mouth bid, x 10 days, take with food 20 capsule 5Active pantoprazole (ProtoNix) 40 MG EC tablet Indications:Secondary esophageal varices without bleeding (HCC)TAKE ONE TABLET BY MOUTH ONCE DAILY 90 tablet 5Active spironolactone (Aldactone) 100 MG tablet Indications:Other ascitesTake 1 tablet (100 mg) by mouth Daily TAKE ONE TABLET BY MOUTH ONCE DAILY AT THE SAME TIME EACH DAY 90 tablet 506Active furosemide (Lasix) 40 MG tablet Indications:Dependent edemaTake 1 tablet (40 mg) by mouth in the morning and 1 tablet (40 mg) before bedtime. 180 tablet 5Active potassium chloride CR (Klor-Con M10) 10 MEQ ER tablet Indications:Dependent edemaTake 1 tablet (10 mEq) by mouth in the morning and 1 tablet (10 mEq) before bedtime. Do not crush or chew.TAKE ONE TABLET BY MOUTH TWICE A DAY ( IN THE MORNING AND BEFORE BEDTIME ). 180 tablet 5Active nadolol (Corgard) 20 MG tablet Indications:Non-alcoholic cirrhosis (HCC)Take 1 tablet (20 mg) by mouth Daily 90 tablet 5Active Ydtremgftko-Qdkvtpfqn-Zunkrp (Trelegy Ellipta) 100-62.5-25 MCG/ACT aerosol powder Indications:Panlobular emphysema (HCC)Inhale 1 puff Daily 3 each 5Active amphetamine-dextroamphetamine (Adderall) 30 MG tablet Indications:Attention deficit hyperactivity disorder (ADHD), combined typeTake 1 tablet (30 mg) by mouth in the morning and 1 tablet (30 mg) before bedtime. 60 tablet 5Active oxyCODONE (Roxicodone) 10 MG immediate release tablet Indications:Chronic RUQ painTake 1 tablet (10 mg) by mouth in the morning and 1 tablet (10 mg) at noon and 1 tablet (10 mg) in the evening and 1 tablet (10 mg) before bedtime. 120 tablet ctive amphetamine-dextroamphetamine (Adderall) 30 MG tablet Indications:Attention deficit hyperactivity disorder (ADHD), combined typeTake 1 tablet (30 mg) by mouth in the morning and 1 tablet (30 mg) before bedtime. 60 tablet Discontinued(Reorder) oxyCODONE (Roxicodone) 10 MG immediate release tablet Indications:Chronic RUQ painTake 1 tablet (10 mg) by mouth in the morning and 1 tablet (10 mg) at noon and 1 tablet (10 mg) in the evening and 1 tablet (10 mg) before bedtime. 120 tablet Discontinued(Reorder) Active Problems ProblemNoted DateDiagnosed DateLeft facial gpkrviyy19/16/0042Paprepd37/16/2024 Thyroid wfmgvx8307/02/2024Thrombocytopenia, cludthpkpnx24/16/2024iliary cobcczkfwh84/24/2023Esophageal varices in ihvimoxsr26/24/2023Gastroesophageal reflux ywsuxyd2104/09/2023ortal ttntqbkbyovx33/24/2023Hepatic shzxjdiei23/24/2023 Attention deficit hyperactivity disorder, predominantly inattentive type 03/09/2023hronic fatigue lqlnkfqu09/23/2023History of radical hysterectomy 03/09/2023Non-alcoholic enbrttwvs93/23/2023Nuclear senile eblymcoa03/23/2023 Vkvzbmy4603/09/2023anlobular yzatpyjod54/23/2023reglaucoma, unspecified, qgnywgtji65/23/2023Secondary biliary oackshrqj34/23/9066Swzjjs49/23/2023asal cell carcinoma of skin11/19/2020lass 1 fwpnxfm9010/06/2020Unspecified rotator cuff tear or rupture of right shoulder, not specified as snunmijko50/25/2020 Esophageal varices without ejukxqxz76/15/2019Current ynhldh6506/11/2019 Overview (04/09/2023): Added secondary to documentation in Social History. History of yitvpjrvnobh75/02/2019Advanced cirrhosis of liver08/28/2018Chronic maxillary xopvengyn42/15/2018Chronic RUQ pain07/17/2018Obesity with body mass index 30 or zsbxlzs1403/22/2018Rupture of right rotator cuff02/28/2018 Vwfjrbmilyzoqkvkqoujhh83/13/3162Umifexzhtgnhufhq36/28/2017Chronic hepatic failure without coma07/19/2017 Resolved Problems ProblemNoted DateDiagnosed DateResolved DateThyroid mjufrl55 Abnormal EKG04/hronic hepatitis C virus toohpbish18/24/2023 04/15/2024losed nondisplaced fracture of head of radius with gwpdgral64/23/2023 04/15/2024losed nondisplaced fracture of neck of left yqyulv2803/09/2023 04/15/2024 Encounters DateTypeDepartmentCare NjrhVedfejomdvk17/17/2025Refill [facility] [address] [place] [address] Huber Greene MD Chronic RUQ pain07/21/2025Refill [facility] [address] [place] [address] Huber Greene MD Attention deficit hyperactivity disorder (ADHD), combined type07/15/2025 1:20 PM EDTOffice Visit [facility] [address] [place] [address] Melissa Agustin MD Postoperative hypothyroidism (Primary Dx); Papillary carcinoma of thyroid (HCC)07/15/2025amb flowsheet [facility] [address] [place] [address] Melissa Agustin MD 07/06/2025Refill [facility] [address] [place] [phone] Huber Greene MD Chronic RUQ pain06/24/2025Refill [facility] [address] [place] [phone] Huber Greene MD Attention deficit hyperactivity disorder (ADHD), combined type06/11/2025 11:00 AM EDTOffice Visit [facility] [address] [place] [phone] Huber Greene MD Panlobular emphysema (HCC) (Primary Dx); Other ascites; Dependent edema; Non-alcoholic cirrhosis (HCC); Chronic RUQ pain06/11/2025[facility] flowsheet [facility] [address] [place] [phone] Huber Greene MD 06/11/20257210Zpqnui11/24/3997Ekmpqw01/16/2025 1:15 PM EDTOffice Visit [facility] [address] [place] [id number] Arie Marquez, Tobacco abuse (Primary Dx); Malignant neoplasm of thyroid gland (HCC); Hypothyroidism, unspecified type ; Mass of left parotid gland06/02/2025[facility] flowsheet [facility] [address] [place] [address] Arie Marquez DO 06/02/20253513Qbacvy19/11/2025Refill [facility] [address] [place] [phone] Huber Greene MD Attention deficit hyperactivity disorder (ADHD), combined type05/13/2025 10:30 AM EDTOffice Visit [facility] [address] [place] [phone] Julia Adames MD Encounter for removal of rjteiel2805/13/2025[facility] flowsheet [facility] [place] [facility] [address] [place] [phone] Julai Adames MD 05/13/20259481Dnngcg14/25/2025Refill [facility] [address] [place] [phone] Huber Greene MD Secondary esophageal varices without bleeding (HCC)05/11/2025Refill [facility] [address] [place] [address] Huber Greene MD Chronic RUQ painfrom Last 3 Months Immunizations ImmunizationAdministration DatesNext DueHep B, adult12/25/2017Pneumococcal Conjugate, Xuqfbcumbjv56/23/2014Pneumococcal Polysaccharide GGLQ6134 Family History Medical HistoryRelationNameCommentsCancerBrother 1Doug GeorgeAlcohol abuse Brother 2Douglas GeorgeAlcohol abuseBrother 3Douglas GeorgeAlcohol abuseBrother 4Douglas GeorgeDiabetesDaughter 1Brittany HuarcasDiabetesDaughter 2Brittany HuarcasDiabetesDaughter 3Brittany HuarcasAsthmaFatherDavid GeorgeCancerFather Gerhard GeorgeDiabetesFatherDavid GeorgeHypertensionFatherDavid GeorgeProstate cancerFatherDavid GeorgeDementiaMotherNorma BakewellHypertensionMotherNorma BakewellHypertensionSisterDebra RitzenthaerRelationNameStatusCommentsBrother 1 Kam GeorgeBrother 2Douglas GeorgeAliveBrother 3Douglas GeorgeAliveBrother 4 Sesar GeorgeAliveDaughter 1Brittany HuarcasAliveDaughter 2Brittany Huarcas AliveDaughter 3Brittany HuarcasAliveFatherDavid GeorgeDeceasedMotherNorma BakewellAliveSisterDebra Ritzenthaer Social History Tobacco UseTypesPacks/DayYears UsedDateSmoking Tobacco: Every DayCigarettes0.5 40.9Started: 09/17/1984Passive Smoke Exposure: CurrentSmokeless Tobacco: Never Tobacco Cessation:Ready to Q uit: Not Asked; Counseling Given: Not Answered Alcohol UseStandard Drinks/WeekCommentsNever0 (1 standard drink = 0.6 oz pure alcohol)caffeine 2-3 cups/dhsI3042 Health LiteracyAnswerDate RecordedHow often do you need [...] relatives?Twice a week06/10/2025How often do you attend hinduism or mormonism services?More than 4 times per year06/10/2025Do you belong to any clubs or organizations such as hinduism groups, unions, fraternal or athletic groups, or school groups?Yes 06/10/2025How often do you attend meetings of the clubs or organizations you belong to?1 to 4 times per year06/10/2025re you , , , , never , or living with a partner?Living with pvcxrno0806/10/2025 AUDIT-CAnswerDate RecordedQ1: How often do you have [...] heating?Somewhat hard 06/10/2025PHQ-2AnswerDate RecordedPatient Health Questionnaire-2 Score0 11/24/2024[facility] [place] [facility] - Occupational Stress QuestionnaireAnswerDate [...] steady place to sleep or slept in [place] (including now)?No03/09/2023Housing Stability Vital Sign AnswerDate RecordedIn the last 12 months, was there a time when you were not able to pay the mortgage or rent on time?No06/10/2025Number of Times Moved in the Last YearNot on file06/10/2025t any time in the past 12 months, were you homeless or living in a mcc (including now)?No06/10/2025CommentsNo Sex and Gender InformationValueDate RecordedSex Assigned at BirthFemale 09/23/2024 6:00 PM ESTLegal VgrNbzvjr35/15/2023 8:25 PM EDTGender IdentityNot on fileSexual OrientationNot on file Last Filed Vital Signs Vital SignReadingTime TakenCommentsBlood Aydwhycu676/7209 11:14 AM EDT Jbvze864907/15/2025 1:25 PM DRVLejwajuxybv47.6 ??C (97.9 ??F)06/11/2025 11:14 AM EDTRespiratory Jpso0785 1:25 PM EDTOxygen Ptdsgwixxw92%07/15/2025 1:25 PM EDTInhaled Oxygen Concentration--Gyhznd617 kg (225 lb)07/15/2025 1:25 PM EDT Xijvvc293.8 cm (5' 10 )07/15/2025 1:25 PM EDTBody Mass Index32.281 1:25 PM EDT Plan of Treatment DateTypeDepartmentCare Team (Latest Contact Info)Rdzsschvbar60/29/2026 1:00 PM EDTOffice Visit [facility] [address] [place] [address] Melissa Agustin MD [address] [place] [address] 06/08/2026 1:45 PM EDTOffice Visit [facility] [address] [place] [address] Arie Marquez, [address] [place] [address] Health MaintenanceDue DateLast DoneCommentsCT Lwdiszmoscrp57/16/1962FIT-DNA 1961FIT1961FOBT1961Lung Cancer Screening Shared Decision Wsqrau42 1961 7137Zqwbcsgsfxunx47/16/1962Diabetes: Retinopathy Ixbljvfnq71/16/1972 Diabetes: Urine Protein Tefjugjvt98/16/1981Pneumococcal Vaccine: Pediatrics (0 to 5 Years) and At-Risk Patients (6 to 64 Years) (2 of 2 - PCV)02/06/2015 02/06/2014, 02/06/20144081Wdropfklk093COVID-19 Vaccine ( season), 12/10/2020Influenza Vaccine (#1)2025Medicare Annual Wellness (AWV), 11/19/2023 (Patient Refused), 11/13/2022, Additional history hbfvmuBrpoumhvqcu19, 09/18/2014 Colorectal Cancer [place]39/03/2029Diabetes: Hemoglobin Z7PLimdvthaexag Goals GoalPatient Goal TypeAssociated ProblemsRecent ProgressPatient-Stated?Author Help patient manage antidepressant medication Care PlanPatient on antidepressant monitoring Huber Humphrey MD Baseline PHQ-9 Care PlanBaseline PHQ-9Huber Ray MD Procedures Procedure NamePriorityDate/TimeAssociated DiagnosisCommentsBI MAMMOGRAM SCREENING TOMOSYNTHESIS LLHTNTTHMOxljawp61/27/2023 12:00 PM EST Encounter for general adult medical examination without abnormal findings Type 2 diabetes mellitus without complications (HCC) Thrombocytopenia, unspecified Chronic obstructive pulmonary disease with (acute) exacerbation (HCC) Portal hypertension (HCC) Nicotine dependence, unspecified, uncomplicated Obesity, unspecified Chronic fatigue, unspecified Unspecified cirrhosis of liver (HCC) Encounter for screening mammogram for malignant neoplasm of breast Body mass index (BMI) 30.0-30.9, adult Nondisplaced fracture of head of left radius, subsequent encounter for closed fracture with nonunion HSLZYWGENHCRfeytwn91/03/2019 12:00 PM EDT from Last 3 Months or Most Recently Relevant to Health Maintenance Results * Bilateral screening mammogram with tomosynthesis (11/13/2022 12:00 PM EST) Anatomical RegionLateralityModalityBreastBilateralMammographySpecimen (Source) Anatomical Location / LateralityCollection Method / VolumeCollection Time Received Time Narrative 11/13/2022 12:00 PM EST PERFORMED AT [facility] LOCATION:[id number] Procedure Note CONVERSION, GENERIC - 03/23/2023 PERFORMED AT [facility] LOCATION:[id number] Authorizing ProviderResult TypeResult StatusPeter D Jc CERVANTESG BI PROCEDURES Final Result * Colonoscopy (01/17/2019 12:00 PM EDT)Anatomical RegionLateralityModality EndoscopySpecimen (Source)Anatomical Location / LateralityCollection Method / VolumeCollection TimeReceived Time01/17/2019 12:00 PM EDT Narrative 01/17/2019 12:00 PM EDT PERFORMED AT [facility] LOCATION:[id number] Procedure Note CONVERSION, GENERIC - 01/31/2023 PERFORMED AT [facility] LOCATION:[id number] Authorizing ProviderResult TypeResult StatusPeter D Jc LUNDENDOSCOPY PROCEDURE ORDERABLESFinal Result from Last 3 Months or Most Recently Relevant to Health Maintenance Additional Health Concerns Active ProblemsNoted DateDiagnosed DatePatient on antidepressant monitoring plan 4Baseline PHQ-9001/14/2024 Insurance Care Teams Team MemberRelationshipSpecialtyStart DateEnd Huber Greene MD [address] [place] [address] [facility] Huber Greene MD [address] [place] [address] PCP - C1/ Arie Marquez DO [address] [place] [address] Otolaryngology02/12/24 Melissa Agustin MD [address] [place] [address] 03/27/24
[2025-08-10 19:17] LABS: Hematocrit 40.9 % (36.0-48.0); Hemoglobin 14.2 g/dL (12.0-16.0); Immature Granulocytes Abs Auto 0.03 10^3/uL (0.00-0.03); Immature Granulocytes Pct Auto 0.5 % (0.0-0.5); Lymphocytes Absolute Auto 0.6 10^3/uL (1.2-3.8); Mean Corpuscular HGB Conc 34.7 g/dL (29.9-35.2); Mean Corpuscular Hemoglobin 31.3 pg (26.7-34.0); Mean Corpuscular Volume 90.3 fL (81.0-99.0); Platelet Count 102 10^3/uL (150-450); Red Blood Count 4.53 10^6/uL (4.20-5.40); White Blood Count 5.6 10^3/uL (4.0-11.0)
[2025-08-10 19:23] VITALS: O2SAT 99
[2025-08-10 19:26] LABS: Anion Gap 7.8; Blood Urea Nitrogen 22.0 mg/dL (7.0-18.0); Calcium 9.7 mg/dL (8.5-10.1); Carbon Dioxide 33.1 mmol/L (21.0-32.0); Chloride 97 mmol/L (98-107); Estimated GFR (African America 50 (>=60 mL/min/1.73m^2); Estimated GFR (Non-African Ame 41 (>=60 mL/min/1.73m^2); Glucose 167 mg/dL (74-106); Potassium 3.9 mmol/L (3.5-5.1); Sodium 134 mmol/L (136-145)
[2025-08-10] MEDS: PHENAZOPYRIDINE 100 MG TABLET PO (20:39)
[2025-08-10 21:16] VITALS: BP 148/89; PULSE 89; O2SAT 96
== END 2025-08-10 21:16 | disposition home or self-care (01) ==
PROVIDERS: Nurse Practitioner Family; Emergency Provider Emergency Medicine; PCP Family Medicine
DX: N39.0 Urinary tract infection, site not specified (principal); Z79.899 Other long term (current) drug therapy
CPT/HCPCS: 36415; 74176; 80048; 81001; 85025; 87086; 96365; 99285; J0696